=== PATIENT | male | born 1930 | race Caucasian/White ===

== ENCOUNTER → 2017-10-02 | Outpatient (CLI) | payer OTHER ==
[2017-10-02 12:06] LABS: HEMATOCRIT 32.2 % (42.0-52.0); HEMOGLOBIN 10.5 g/dl (13.5-17.5); MEAN CORPUSCULAR HGB CONC 32.6 g/dl (32.0-36.5); MEAN CORPUSCULAR VOLUME 98.2 fl (80.0-96.0); PLATELET COUNT, AUTOMATED 308 10^3/uL (150-450); RED BLOOD COUNT 3.28 10^6/uL (4.30-6.10); RED CELL DISTRIBUTION WIDTH 12.4 % (11.5-14.5)
[2017-10-02 12:17] LABS: INR 0.97
[2017-10-02 12:59] LABS: ERYTHROCYTE SEDIMENTATION RATE 66 mm/hr (0-30)
[2017-10-02 13:04] LABS: ALBUMIN 3.5 GM/DL (3.2-5.2); ALBUMIN/GLOBULIN RATIO 0.97 (1.00-1.93); ALKALINE PHOSPHATASE 146 U/L (45-117); ALT/SGPT 14 U/L (12-78); ANION GAP 9 MEQ/L (8-16); AST/SGOT 13 U/L (7-37); BILIRUBIN,TOTAL 0.3 MG/DL (0.2-1.0); BLOOD UREA NITROGEN 59 MG/DL (7-18); CARBON DIOXIDE LEVEL 26 MEQ/L (21-32); CHLORIDE LEVEL 108 MEQ/L (98-107); CREATININE FOR GFR 3.16 MG/DL (0.70-1.30); GLOMERULAR FILTRATION RATE 19.9 (>35); GLUCOSE, FASTING 189 MG/DL (70-100); SODIUM LEVEL 143 MEQ/L (136-145); TOTAL PROTEIN 7.1 GM/DL (6.4-8.2)
== END ==
LOC: M ADMPAT 10:14
DX: Z01.818 Encounter for other preprocedural examination (principal); M16.11 Unilateral primary osteoarthritis, right hip
CPT/HCPCS: 71046

== ENCOUNTER → 2017-10-26 | Outpatient (CLI) | payer OTHER | LOC: M RAD 09:57 | DX: N18.4 Chronic kidney disease, stage 4 (severe) (principal); I12.9 Hypertensive chronic kidney disease with stage 1 through stage 4 chronic kidney disease, or unspecified chronic kidney disease; Z85.46 Personal history of malignant neoplasm of prostate; N28.1 Cyst of kidney, acquired; N40.0 Benign prostatic hyperplasia without lower urinary tract symptoms | CPT/HCPCS: 76775 ==

== ENCOUNTER 2017-11-05 05:46 | Inpatient (IN) | payer OTHER ==
[2017-11-05] MEDS ORDERED: LIDOCAINE 1% MDV 20ML VIAL SQ (06:00)
[2017-11-05] MEDS: LR 1,000 ML IV ×3 (06:00→10:45)
[2017-11-05 06:41] LABS: GLUCOSE, FASTING 154 MG/DL (70-100)
[2017-11-05] MEDS ORDERED: fentaNYL 100 MCG/2 ML INJECTION (J3010) As Ordered (07:01)
[2017-11-05] MEDS ORDERED: MIDAZOLAM INJ 2 MG/2 ML VIAL (J2250) As Ordered (07:01)
[2017-11-05] MEDS ORDERED: LIDOCAINE 2% INJ 100 MG/5 ML SDV (FOR ANES.) As Ordered (07:02)
[2017-11-05] MEDS ORDERED: PROPOFOL 200 MG/20 ML VIAL As Ordered (07:02)
[2017-11-05] MEDS: TRANEXAMIC ACID 100 MG/ML 10ML VIAL As Ordered ×2 (08:18→09:07)
[2017-11-05] MEDS: BUPIVACAINE/EPIN 0.25% 30 ML VIAL As Ordered (08:18)
[2017-11-05] MEDS: ceFAZolin 1GM INJ (J0690 PER 500MG) As Ordered (09:05)
[2017-11-05] MEDS: EPINEPHrine INJ 1 MG/ML 1ML AMP As Ordered (09:07)
[2017-11-05] MEDS: BUPIVACAINE HCL 0.5% 10 ML VIAL As Ordered (09:49)
[2017-11-05] MEDS: BUPIVACAINE LIPOSOME/PF 1.3% 20 ML VIAL (13.3MG/ML)(EXPAREL) As Ordered (09:49)
[2017-11-05] MEDS ORDERED: ONDANSETRON 4MG/2ML VIAL (J2405) As Ordered (10:30)
[2017-11-05] MEDS ORDERED: METOCLOPRAMIDE INJ 10MG/2ML VIAL (J2765) As Ordered (10:31)
[2017-11-05] MEDS: ONDANSETRON 4MG/2ML VIAL (J2405) IV (10:35)
[2017-11-05] MEDS: METOCLOPRAMIDE INJ 10MG/2ML VIAL (J2765) IV (10:40)
[2017-11-05] MEDS ORDERED: ACETAMINOPHEN TAB 650MG DOSE (2X325MG) PO (10:45)
[2017-11-05] MEDS ORDERED: fentaNYL 100 MCG/2 ML INJECTION (J3010) IV (10:45)
[2017-11-05] MEDS ORDERED: FLEET ENEMA PR (10:45)
[2017-11-05] MEDS: PERCOCET 5MG/325MG TAB PO ×2 (11:15→20:51)
[2017-11-05] MEDS: D5W/LR 1,000 ML IV (11:59)
[2017-11-05] MEDS: MORPHINE 4 MG/ML 1ML VIAL/SYRINGE (J2270) IV (12:27)
[2017-11-05] MEDS: POTASSIUM CHLORIDE 10 MEQ SR TABLET PO (14:56)
[2017-11-05] MEDS: FEBUXOSTAT 40 MG TABLET (ULORIC) PO (14:56)
[2017-11-05] MEDS: CARVedilol 6.25 MG TAB PO (14:57)
[2017-11-05] MEDS: FUROSEMIDE 40 MG TAB PO (14:57)
[2017-11-05] MEDS: OMEPRAZOLE 20 MG CAP PO (14:57)
[2017-11-05 15:52] LABS: HEMATOCRIT 28.8 % (42.0-52.0); HEMOGLOBIN 9.3 g/dl (13.5-17.5); MEAN CORPUSCULAR HEMOGLOBIN 31.8 pg (27.0-33.0); MEAN CORPUSCULAR HGB CONC 32.3 g/dl (32.0-36.5); MEAN CORPUSCULAR VOLUME 98.6 fl (80.0-96.0); PLATELET COUNT, AUTOMATED 221 10^3/uL (150-450); RED BLOOD COUNT 2.92 10^6/uL (4.30-6.10); RED CELL DISTRIBUTION WIDTH 12.6 % (11.5-14.5); WHITE BLOOD COUNT 13.4 10^3/uL (4.0-10.0)
[2017-11-05 16:06] LABS: ALBUMIN 2.8 GM/DL (3.2-5.2); ANION GAP 4 MEQ/L (8-16); BLOOD UREA NITROGEN 62 MG/DL (7-18); CALCIUM LEVEL 8.5 MG/DL (8.8-10.2); CARBON DIOXIDE LEVEL 31 MEQ/L (21-32); CHLORIDE LEVEL 108 MEQ/L (98-107); CREATININE FOR GFR 2.82 MG/DL (0.70-1.30); GLOMERULAR FILTRATION RATE 22.6 (>35); GLUCOSE, FASTING 182 MG/DL (70-100); PHOSPHORUS LEVEL 3.2 MG/DL (2.5-4.9); POTASSIUM SERUM 4.1 MEQ/L (3.5-5.1); SODIUM LEVEL 143 MEQ/L (136-145)
[2017-11-05 16:52] LABS: FERRITIN 450 NG/ML (26-388); IRON (FE) 44 UG/DL (65-175); PERCENT SATURATION 20.5 % (19.7-50.0); TOTAL IRON BINDING CAPACITY 215 UG/DL (250-450)
[2017-11-05] MEDS: TAMSULOSIN 0.4 MG CAP PO (20:51)
[2017-11-05] MEDS: FLUTICASONE PROP 0.05% NASAL SPRAY 16 GM (FLONASE) (21:03)
[2017-11-05] MEDS: APIXABAN 2.5 MG TAB (ELIQUIS) PO (22:02)
[2017-11-06] MEDS: D5W/LR 1,000 ML IV (00:50)
[2017-11-06] MEDS: PERCOCET 5MG/325MG TAB PO (05:20)
[2017-11-06 06:20] LABS: HEMOGLOBIN 9.1 g/dl (13.5-17.5); MEAN CORPUSCULAR HEMOGLOBIN 32.4 pg (27.0-33.0); MEAN CORPUSCULAR HGB CONC 33.7 g/dl (32.0-36.5); MEAN CORPUSCULAR VOLUME 96.1 fl (80.0-96.0); PLATELET COUNT, AUTOMATED 208 10^3/uL (150-450); RED BLOOD COUNT 2.81 10^6/uL (4.30-6.10); RED CELL DISTRIBUTION WIDTH 12.7 % (11.5-14.5); WHITE BLOOD COUNT 10.8 10^3/uL (4.0-10.0)
[2017-11-06 06:31] LABS: INR 1.04; PROTHROMBIN TIME 13.7 SECONDS (12.1-14.4)
[2017-11-06] MEDS: CARVedilol 6.25 MG TAB PO (09:00)
[2017-11-06] MEDS: POTASSIUM CHLORIDE 10 MEQ SR TABLET PO (09:00)
[2017-11-06] MEDS ORDERED: APIXABAN 2.5 MG TAB (ELIQUIS) PO (09:00)
[2017-11-06] MEDS: FEBUXOSTAT 40 MG TABLET (ULORIC) PO (09:07)
[2017-11-06] MEDS: APIXABAN 2.5 MG TAB (ELIQUIS) PO (09:07)
[2017-11-06] MEDS: MIRALAX *UNIT DOSE* 17GM PACKET PO (09:07)
[2017-11-06] MEDS: SENOKOT S TAB PO (09:08)
[2017-11-06] MEDS: OMEPRAZOLE 20 MG CAP PO (09:08)
[2017-11-06 09:50] LABS: ANION GAP 9 MEQ/L (8-16); BLOOD UREA NITROGEN 53 MG/DL (7-18); CALCIUM LEVEL 8.3 MG/DL (8.8-10.2); CARBON DIOXIDE LEVEL 29 MEQ/L (21-32); CHLORIDE LEVEL 105 MEQ/L (98-107); GLOMERULAR FILTRATION RATE 22.8 (>35); GLUCOSE, FASTING 216 MG/DL (70-100); POTASSIUM SERUM 3.9 MEQ/L (3.5-5.1); SODIUM LEVEL 143 MEQ/L (136-145)
[2017-11-06] MEDS: ONDANSETRON 4MG/2ML VIAL (J2405) IV (12:20)
== END 2017-11-06 18:37 | disposition other institution (70) | DRG 470 ==
LOC: M OR 05:46 → M MS5PR 11:25
PROVIDERS: Orthopaedic Surgery
PROC: 0SR902Z Replacement of Right Hip Joint with Metal on Polyethylene Synthetic Substitute, Open Approach (ICD-10-PCS; principal; 2017-11-05 07:30)
DX: M16.11 Unilateral primary osteoarthritis, right hip (principal); N18.4 Chronic kidney disease, stage 4 (severe); I12.9 Hypertensive chronic kidney disease with stage 1 through stage 4 chronic kidney disease, or unspecified chronic kidney disease; N40.0 Benign prostatic hyperplasia without lower urinary tract symptoms; E11.9 Type 2 diabetes mellitus without complications; M06.9 Rheumatoid arthritis, unspecified; Z86.718 Personal history of other venous thrombosis and embolism; Z79.899 Other long term (current) drug therapy; E78.5 Hyperlipidemia, unspecified; K21.9 Gastro-esophageal reflux disease without esophagitis; D63.1 Anemia in chronic kidney disease

== ENCOUNTER → 2018-02-09 | Outpatient (REF) | payer OTHER | LOC: M LAB REF 17:40 | DX: N39.0 Urinary tract infection, site not specified (principal) | CPT/HCPCS: 87186 ==

== ENCOUNTER → 2018-02-11 | Outpatient (CLI) | payer OTHER ==
[2018-02-11 14:53] LABS: HEMOGLOBIN 11.2 g/dl (13.5-17.5)
[2018-02-11 15:02] LABS: INR 0.97
[2018-02-11 15:09] LABS: ANION GAP 7 MEQ/L (8-16); BLOOD UREA NITROGEN 71 MG/DL (7-18); CALCIUM LEVEL 8.8 MG/DL (8.8-10.2); CARBON DIOXIDE LEVEL 30 MEQ/L (21-32); CHLORIDE LEVEL 103 MEQ/L (98-107); CREATININE FOR GFR 3.22 MG/DL (0.70-1.30); GLOMERULAR FILTRATION RATE 19.4 (>35); GLUCOSE, FASTING 188 MG/DL (70-100); POTASSIUM SERUM 4.4 MEQ/L (3.5-5.1); SODIUM LEVEL 140 MEQ/L (136-145)
== END ==
LOC: M LAB 13:33
DX: Z01.818 Encounter for other preprocedural examination (principal); M16.12 Unilateral primary osteoarthritis, left hip
CPT/HCPCS: 80048

== ENCOUNTER → 2018-05-07 | Outpatient (REF) | payer OTHER ==
[~2018-05-07] MED LIST: ASPI1TAB PO; CARV6.25 PO; DILT1TAB12 PO; ELIQ2.5T PO; FEBU40TA; FLOM0.4C39 PO; FLUT1LOT EX; FLUTISP; FURO40TA2 PO; MECL12.575 PO; METO5TAB2 PO; MIRA33504 PO; OMEP40CA2 PO; OXYCO5TA PO; POTA10TA16 PO; PRENTAB53 PO
== END ==
LOC: M LAB REF 17:01
PROVIDERS: ATTEND Internal Medicine Nephrology
DX: N39.0 Urinary tract infection, site not specified (principal)